=== PATIENT | female | born 1980 | race Caucasian/White ===

== ENCOUNTER 2018-03-06 18:52 | Emergency (ER) | payer OTHER, BC ==
[2016-12-07 14:51] VITALS: Wt 90.7 kg
[~2018-03-06 18:52] MED LIST: AMO875 PO; HCTZ25 PO; HYDR-3250 PO; IBUP-56 PO; IBUP800T37 PO; Ibuprofen PO; NORG1TAB2 PO; PER PO; PRED-314 PO; PREN-127 PO; THRIVE
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
[2018-03-06] MEDS ORDERED: METH-542 PO (20:45)
[2018-03-06] MEDS ORDERED: KET10 PO (20:45)
[2018-03-06] MEDS ORDERED: METHOCARBAMOL 500 MG TAB PO ONE (20:50)
== END 2018-03-06 21:06 | disposition home or self-care (01) ==
LOC: ER 19:16
DX: S13.4XXA Sprain of ligaments of cervical spine, initial encounter (principal); V49.60XA Unspecified car occupant injured in collision with unspecified motor vehicles in traffic accident, initial encounter
CPT/HCPCS: 71046; 71100; 72050; 72072; 72120; 99283